=== PATIENT | female | born 1975 | race Caucasian/White ===

== ENCOUNTER → 2017-06-04 | Outpatient (CLI) | payer OTHER ==
[~2017-06-04] MED LIST: ALPRAZOLAM PO; HUMULIN R100 U/ML SUBQ; LIPITOR PO; LORTAB 10/500 T1 TAB PO; OXYCONTIN PO
--- NOTE | ~2017-06-04 | MR32 ---
[facility] A Service of [facility] RADIOLOGY TEXT RESULTS PATIENT: NAVYA ELIZABETH LOCATION: [facility] : 71 UNIT #: [id number] AGE: [address]: Blue Bartlett MD SEX: F ORDER DR: [id number] [address] [address] [id number] O MR#: [id number] Acc #: [id number] NAME: NAVYA ELIZABETH : 1975 SEX: F STUDY DATE/TIME: 06/04/2017 11:57 UNIT: [facility] ROOM: STUDY DESCRIPTION: MR Cervical Wo Contrast Attending Physician: Blue Bartlett M.D. Referring Physician: Blue Bartlett M.D. Ordering Physician: Yolanda Traore Aprn Primary Care Physician: Primary Care Physician No MRI CENTER REPORT This report is preliminary unless electronic signature is present. EXAM MRI of the cervical spine without contrast dated 06/04/2017 COMPARISON Plain film cervical spine dated 10/05/2014 HISTORY Chronic neck pain which extends into shoulders and arms for a year. No new trauma. FINDINGS Multisequence multiplanar imaging of the cervical spine was obtained without contrast. Vertebral body heights and alignment are preserved. Degenerative disc disease is at multiple levels. There is a 6.5 mm increased T2 and decreased T1 signal lesion at T1 vertebral body. There is also a nearby increased T1 and subtle increased T2 signal lesion along the right lateral aspect of T1 suggestive of a fatty lesion. Mild degenerative disc signal loss is at multiple levels. Cord demonstrates normal shape, size and symmetry. Pre and paravertebral soft tissues do not demonstrate any significant abnormality. C2-3: Concentric disc bulge with small central protrusion. No canal stenosis or neural foraminal narrowing. C3-4: Concentric disc bulge with small central protrusion. Borderline-sized canal. No neural foraminal narrowing. C4-5: Concentric disc bulge with small central protrusion. No canal stenosis or neural foraminal narrowing. C5-6: Concentric disc bulge with mild inferior left neural foraminal narrowing with relatively patent superior aspect. No canal stenosis. C6-7, C7-T1: Mild disc bulge but otherwise unremarkable. STS. [facility] A Service of [facility] & [facility] RADIOLOGY TEXT RESULTS PATIENT: NAVYA ELIZABETH LOCATION: [facility] #: [id number] : 71 UNIT #: [id number] AGE: [address]: Blue Bartlett MD SEX: F ORDER DR: IMPRESSION 1. Mild disc disease is noted with small central protrusions from C3-4 to C4-5. 2. No canal stenosis or neural foraminal narrowing. 3. There is a fatty signal lesion noted in the T1 vertebral bodies. It could be related to an atypical small hemangioma or even fatty marrow change. There is an adjacent 6.5 mm lesion which has increased T2 and ISO to decreased T1 signal. It is nonspecific. In a young patient without any history of known malignancy, metastasis is less likely. It is a nonspecific finding. Attention to it is suggested during subsequent followup imaging to exclude malignancy. There are no prior CTs available for comparison. Dictated by... Ruma Aguirre M.D. THIS IS AN ELECTRONICALLY VERIFIED REPORT Ruma Aguirre M.D. at 06/05/2017 1:17 PM LUISANA/raymundo TD: 06/05/2017 10:07 JOB #: [id number] MRI CENTER REPORT Page 1 of 1
--- NOTE | ~2017-06-04 | MR113 ---
[facility] A Service of [facility] RADIOLOGY TEXT RESULTS PATIENT: NAVYA ELIZABETH LOCATION: [facility] : 71 UNIT #: [id number] AGE: [address]: Blue Bartlett MD SEX: F ORDER DR: [id number] [address] [address] [id number] O MR#: [id number] Acc #: [id number] NAME: NAVYA ELIZABETH : 1975 SEX: F STUDY DATE/TIME: 06/04/2017 12:22 UNIT: [facility] ROOM: STUDY DESCRIPTION: MR Lumbar Wo Contrast Attending Physician: Blue Bartlett M.D. Referring Physician: Blue Bartlett M.D. Ordering Physician: Yolanda Traore Aprn Primary Care Physician: Julieta Primary Care Physician MRI CENTER REPORT This report is preliminary unless electronic signature is present. EXAM MRI of the lumbar spine without contrast dated 06/04/2017. COMPARISON None HISTORY Chronic low-back pain for 5-10 years with pain extending to the right lower extremity. FINDINGS Multisequence, multiplanar imaging of the lumbar spine was obtained without contrast. Vertebral body heights and alignment are preserved. Minimal edematous endplate changes are noted along the left lateral aspect of L5-S1. Degenerative disc signal loss is at L4-5 and L5-S1. Conus terminates at L1-2. Signal of conus and cauda equina are within normal limits. Pre and paravertebral soft tissues do not demonstrate any significant abnormality. L1-2: Minimal disc bulge but otherwise unremarkable. L2-3: Minimal disc bulge but otherwise unremarkable. L3-4: Concentric disc bulge but otherwise unremarkable. L4-5: Concentric disc bulge with superimposed right to left central moderate protrusion with mild canal stenosis and mild inferior bilateral neural foraminal narrowing, slightly worse on the left. Minimal bilateral facet changes. L5-S1: Concentric disc bulge with superimposed right to left central protrusion. There is also a left [id number] broad-based STS. [facility] A Service of [facility] RADIOLOGY TEXT RESULTS PATIENT: NAVYA ELIZABETH LOCATION: [facility] #: [id number] : [birth year] UNIT #: [id number] AGE: [address]: Blue Bartlett MD SEX: F ORDER DR: protrusion noted with [id number]-[id number] left neural foraminal narrowing. Mild bilateral facet changes are seen. IMPRESSION Degenerative changes are noted at multiple levels, relatively worse at L4-5 and L5-S1 as described above. Minimal edematous endplate changes are noted along the left lateral aspect of L5-S1, degenerative. Dictated by... Ruma Aguirre M.D. THIS IS AN ELECTRONICALLY VERIFIED REPORT Ruma Aguirre M.D. at 06/05/2017 1:13 PM CPR/tmw TD: 06/05/2017 10:29 JOB #: [id number] MRI CENTER REPORT Page 1 of 1
== END | disposition home or self-care (01) ==
LOC: SMRI 10:15
DX: M50.11 Cervical disc disorder with radiculopathy, high cervical region (principal); M50.121 Cervical disc disorder at C4-C5 level with radiculopathy; M99.82 Other biomechanical lesions of thoracic region; M47.26 Other spondylosis with radiculopathy, lumbar region; M47.27 Other spondylosis with radiculopathy, lumbosacral region
CPT/HCPCS: 72141; 72148